=== PATIENT | female | born 2000 | race Two or more races ===

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

== ENCOUNTER 2023-04-02 23:04 | Emergency (ER) | payer MEDICAID ==
[~2023-04-02] VITALS: Ht 157.5 cm; Wt 47.0 kg
[2023-04-02 23:51] LABS: Eosinophils # (auto) 0.1 10 ^3/uL (0-0.8); Hemoglobin 11.6 g/dL (12.2-16.2); Lymphocytes # (auto) 1.8 10 ^3/uL (0.4-5.4); Monocytes # (auto) 0.6 10 ^3/uL (0-1.3); Red Cell Distribution Width 16.5 % (11.8-14.3)
[2023-04-02 23:53] LABS: Basophils # (auto) 0.1 10 ^3/uL (0-0.2); Eosinophils % (auto) 1.6 % (0.0-7.0); Lymphocytes % (auto) 26.2 % (10.0-50.0); Mean Corpuscular Hemoglobin 24.4 pg (28.0-32.0); Mean Corpuscular Hgb Conc. 32.4 g/dL (32.0-36.0); Mean Corpuscular Volume 75.4 fL (80.0-100.0); Monocytes % (auto) 8.1 % (0.0-12.0); Neutrophils # (auto) 4.4 10 ^3/uL (1.6-8.6); Neutrophils % (auto) 63.1 % (37.0-80.0); Red Blood Cells 4.77 10^6/uL (4.0-5.20)
[2023-04-03 00:09] LABS: Alanine Aminotransferase < 9 U/L (7-40); Albumin 5.3 g/dL (3.2-4.8); Alkaline Phosphatase 77 U/L (46-116); Anion Gap 9 (5-15); Aspartate Aminotransferase 17 U/L (13-40); BUN/Creatinine Ratio 13.8 (10.0-20.0); Bilirubin, Total 1.1 mg/dL (0.2-1.0); Blood Urea Nitrogen 11 mg/dL (9-23); Calcium 9.8 mg/dL (8.7-10.4); Carbon Dioxide 24 mmol/L (20-30); Chloride 108 mmol/L (98-107); Glucose 97 mg/dL (74-106); Potassium 3.7 mmol/L (3.5-5.1); Sodium 141 mmol/L (136-145); Total Protein 8.5 g/dL (5.7-8.2)
[2023-04-03 00:22] LABS: Blood Alcohol < 3.0 mg/dL (<10); Lipase 49 U/L (12-53)
[2023-04-03 05:05] VITALS: BP 117/72; PULSE 73; RESP 16; TEMP 98.6; O2SAT 96
[2023-04-03] MEDS ORDERED: MIRT-94 PO (05:27)
== END 2023-04-03 05:21 | disposition home or self-care (01) ==
LOC: ER 23:04
DX: O20.8 Other hemorrhage in early pregnancy (principal); R10.2 Pelvic and perineal pain; R45.851 Suicidal ideations; F32.9 Major depressive disorder, single episode, unspecified; Z3A.01 Less than 8 weeks gestation of pregnancy
CPT/HCPCS: 36415; 80053; 80320; 83690; 84702; 85025